=== PATIENT | female | born 2000 | race African-American/Black ===

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

== ENCOUNTER → 2021-10-11 | Emergency (ER) | payer BC ==
[~2021-10-11] VITALS: Ht 170.2 cm; Wt 95.3 kg
[~2021-10-11] MED LIST changes: +AMOXICILLI250 MG/51 PO; +HYDROCODONE-ACE15 M1 PO; +PROMS25 WY RECTAL
[2021-10-11 14:21] VITALS: BP 130/70
--- NOTE | 2021-10-12 07:42 | EKG ---
[address] [address] ELECTROCARDIOGRAM REPORT Name: ROXANNA BOB [id number]: 10/11/21 Attend Phys: Discharge: Date of : 00 Report #: [id number] [facility] ED Test Date: 2021-10-11 Test Time: 14:27:24 Pat Name: ROXANNA BOB Department: Room: Gender: F Recreation Program Specialist: SHAUN : 2000 Requested By: Lourdes Gottlieb Order Number: [id number] MD: Joshua Allison Measurements Intervals [place] Rate: 74 P: 58 NV: 163 QRS: 59 QRSD: 81 T: 34 QT: 383 QTc: 425 Interpretive Statements Sinus rhythm Probable left atrial enlargement No previous ECG available for comparison Electronically Signed On 10-12-2021 7:42:17 [employer] by Joshua Allison [email or web address] <ELECTRONICALLY SIGNED> By: Joshua Allison MD, [facility] 10/12/21 0742 1427 1427 Joshua Allison MD, FACC /EPI
== END ==
LOC: ER 14:19
DX: R06.02 Shortness of breath (principal); R07.89 Other chest pain; Z88.1 Allergy status to other antibiotic agents; Z53.21 Procedure and treatment not carried out due to patient leaving prior to being seen by health care provider